=== PATIENT | male | born 1965 | race Asian ===

== ENCOUNTER 2017-11-04 17:47 | Inpatient (IN) | payer MEDICAID, OTHER ==
[~2017-11-04] VITALS: Ht 160 cm; Wt 70.2 kg
[2017-11-04] MEDS ORDERED: MAALOX/HYOSCYAMINE/LIDOCAINE 45 ML BTL ONE (18:30)
[2017-11-04] MEDS ORDERED: MAALOX/HYOSCYAMINE/LIDOCAINE 45 ML BTL PO ONE (18:30)
[2017-11-04] MEDS ORDERED: SODIUM CHLORIDE FLUSH 10ML SYR IVF ONE ×2 (18:30→20:00)
[2017-11-04] MEDS ORDERED: ONDANSETRON ODT 4 MG ONE (18:30)
[2017-11-04] MEDS ORDERED: ONDANSETRON ODT 4 MG PO ONE (18:30)
[2017-11-04] MEDS ORDERED: SODIUM CHLORIDE 0.9% 1,000ML IVBOLUS ONE ×3 (18:30→21:00)
[2017-11-04 19:04] LABS: ALBUMIN 5.2 g/dL (3.4-5.0); ANION GAP 11 mmol/L (5-15); CALCIUM 9.2 mg/dL (8.5-10.1); CHLORIDE 101 mmol/L (98-107)
[2017-11-04 19:06] LABS: MEAN CORPUSCULAR HEMOGLOBIN 29.1 pg (27.5-34.5); MEAN CORPUSCULAR HGB CONC 32.8 g/dL (33.2-36.2); MEAN CORPUSCULAR VOLUME 88.6 fL (81-97); PLATELET COUNT 255 x10^3/uL (130-400); RED BLOOD COUNT 6.75 x10^6/uL (4.38-5.82); RED CELL DISTRIBUTION WIDTH 13.9 % (9.4-14.8)
[2017-11-04 19:07] LABS: ALANINE AMINOTRANSFERASE 51 U/L (12-78); ALKALINE PHOSPHATASE 129 U/L (45-117); BILIRUBIN,TOTAL 0.9 mg/dL (0.2-1.0); CREATININE 2.14 mg/dL (0.7-1.3); TOTAL PROTEIN 10.5 g/dL (6.4-8.2)
[2017-11-04 19:11] LABS: MD YES
[2017-11-04 19:17] LABS: BANDS%(MANUAL) 25 % (0-7); EOS#(MANUAL) 0.62 x10^3/uL (0.0-0.4); EOS% (MANUAL) 3 % (1-7); LYMPH#(MANUAL) 1.87 x10^3/uL (1-3.4); LYMPHS% (MANUAL) 9 % (22-44); METAMYELOCYTES# (MANUAL) 0.83 x10^3/uL (0-0); METAMYELOCYTES% (MANUAL) 4 % (0-1); MONOS#(MANUAL) 1.66 x10^3/uL (0.3-2.7); MONOS% (MANUAL) 8 % (2-9); SEG#(MANUAL) 10.61 x10^3/uL (1.8-6.8); SEGS% (MANUAL) 51 % (42-75)
[2017-11-04 19:21] LABS: <PLATELET ESTIMATE> ADEQUATE; <RBC MORPHOLOGY> NORMAL; GIANT PLATELETS 1+; LARGE PLATELETS 1+
[2017-11-04] MEDS ORDERED: CIPROFLOXACIN/PMX 400MG/200ML 200 ML IV ONE (21:00)
[2017-11-04 21:42] LABS: MICROSCOPIC INDICATED
[2017-11-04] MEDS ORDERED: CIPROFLOXACIN/PMX 400MG/200ML 200 ML ONE (21:42)
[2017-11-04 21:53] LABS: CULTURE INDICATED? YES
[2017-11-04] MEDS ORDERED: HEPARIN 5,000 UNITS/ML, 1ML SQ SCH (22:30)
[2017-11-04] MEDS ORDERED: BISACODYL 10 MG SUPP PR PRN (22:30)
[2017-11-04] MEDS ORDERED: morphine SULFATE 10 MG/ML, 1ML IVPush PRN (22:30)
[2017-11-04] MEDS ORDERED: POLYETHYLENE GLYCOL 17 GM PACKET PO PRN (22:30)
[2017-11-04] MEDS ORDERED: ACETAMINOPHEN 325 MG TABLET PO PRN (22:30)
[2017-11-04] MEDS ORDERED: OXYcodone IR 5MG TABLET PO PRN (22:30)
[2017-11-04] MEDS ORDERED: PROMETHAZINE 25 MG/ML, 1ML IM PRN (22:30)
[2017-11-04] MEDS ORDERED: ONDANSETRON 2MG/ML, 2ML IVPush PRN (22:30)
[2017-11-04] MEDS ORDERED: DOCUSATE 100 MG CAPSULE PO PRN (22:30)
[2017-11-04] MEDS ORDERED: hydrALAzine 20 MG/ML, 1ML IVPush PRN (22:30)
[2017-11-04 23:28] LABS: FREE T4 (FREE THYROXINE) 1.02 ng/dL (0.76-1.46); THYROID STIMULATING HORMONE 1.27 mIU/L (0.358-3.740)
[2017-11-04] MEDS: SODIUM CHLORIDE 0.9% 1,000 ML IV SCH (23:39)
[2017-11-05] VITALS (12 sets, daily range): BP systolic 88–114; BP diastolic 42–57
[2017-11-05] MEDS: CEFTRIAXONE PMX 2GM/50ML 50 ML IV SCH ×2 (00:09→22:12)
[2017-11-05 00:34] LABS: HEMOGLOBIN A1C 6.2 % (4.2-6.3)
[2017-11-05 05:39] LABS: BASOPHILS # (AUTO) 0.04 x10^3/uL (0-0.1); BASOPHILS % (AUTO) 0 % (0-1); EOSINOPHILS # (AUTO) 0.27 x10^3/uL (0-0.4); EOSINOPHILS % (AUTO) 2 % (1-7); LYMPHOCYTES # (AUTO) 1.32 x10^3/uL (1-3.4); LYMPHOCYTES % (AUTO) 9 % (22-44); MD NO; MEAN CORPUSCULAR HEMOGLOBIN 29.4 pg (27.5-34.5); MEAN CORPUSCULAR HGB CONC 33.7 g/dL (33.2-36.2); MEAN CORPUSCULAR VOLUME 87.1 fL (81-97); MEAN PLATELET VOLUME 9.5 fL (7.4-10.4); MONOCYTES # (AUTO) 1.42 x10^3/uL (0.2-0.8); MONOCYTES % (AUTO) 10 % (2-9); NEUTROPHILS # (AUTO) 11.38 x10^3/uL (1.8-6.8); NEUTROPHILS % (AUTO) 79 % (42-75); PLATELET COUNT 209 x10^3/uL (130-400); RED BLOOD COUNT 4.68 x10^6/uL (4.38-5.82); RED CELL DISTRIBUTION WIDTH 13.9 % (9.4-14.8)
[2017-11-05 05:42] LABS: CHLORIDE 110 mmol/L (98-107)
[2017-11-05 05:51] LABS: ALANINE AMINOTRANSFERASE 27 U/L (12-78); ALBUMIN 2.9 g/dL (3.4-5.0); ALKALINE PHOSPHATASE 67 U/L (45-117); ANION GAP 10 mmol/L (5-15); BILIRUBIN,TOTAL 0.5 mg/dL (0.2-1.0); CALCIUM 7.2 mg/dL (8.5-10.1); CHOL/HDL RATIO 4.3; CHOLESTEROL, TOTAL 115 mg/dL (140-239); CREATININE 1.65 mg/dL (0.7-1.3); HDL CHOL % 23 % (26-37); HDL CHOLESTEROL (DIRECT) 27 mg/dL (40-60); LDL CHOLESTEROL,CALCULATED 46 mg/dL (54-169); LDL/HDL RATIO 1.7 (0.5-3.0); TOTAL PROTEIN 6.1 g/dL (6.4-8.2); TRIGLYCERIDES 211 mg/dL (50-200); VLDL CHOLESTEROL 42 mg/dL (0-25)
[2017-11-05] MEDS: SODIUM CHLORIDE 0.9% 1,000 ML IV SCH (06:19)
[2017-11-05 09:38] LABS: CLOSTRIDIUM DIFFICILE ANTIGEN NEGATIVE; CLOSTRIDIUM DIFFICILE TOXIN NEGATIVE (Negative)
[2017-11-05] MEDS: LACTATED RINGERS 1,000 ML IV SCH ×3 (10:05→23:44)
[2017-11-05 10:29] LABS: STOOL FOR LEUKOCYTES NONE SEEN (NEGATIVE)
[2017-11-05 10:32] LABS: OCCULT BLOOD NEGATIVE (NEGATIVE)
[2017-11-06 01:03] VITALS: BP 104/57
[2017-11-06] MEDS: LACTATED RINGERS 1,000 ML IV SCH ×2 (05:38→11:57)
[2017-11-06 06:07] LABS: BASOPHILS # (AUTO) 0.03 x10^3/uL (0-0.1); BASOPHILS % (AUTO) 0 % (0-1); EOSINOPHILS # (AUTO) 0.54 x10^3/uL (0-0.4); EOSINOPHILS % (AUTO) 5 % (1-7); LYMPHOCYTES # (AUTO) 1.92 x10^3/uL (1-3.4); LYMPHOCYTES % (AUTO) 19 % (22-44); MD NO; MEAN CORPUSCULAR HEMOGLOBIN 29.7 pg (27.5-34.5); MEAN CORPUSCULAR VOLUME 87.3 fL (81-97); MEAN PLATELET VOLUME 9.8 fL (7.4-10.4); MONOCYTES # (AUTO) 0.93 x10^3/uL (0.2-0.8); MONOCYTES % (AUTO) 9 % (2-9); NEUTROPHILS # (AUTO) 6.96 x10^3/uL (1.8-6.8); NEUTROPHILS % (AUTO) 67 % (42-75); PLATELET COUNT 206 x10^3/uL (130-400); RED BLOOD COUNT 4.44 x10^6/uL (4.38-5.82); RED CELL DISTRIBUTION WIDTH 14.1 % (9.4-14.8)
[2017-11-06 06:13] LABS: CHLORIDE 109 mmol/L (98-107)
[2017-11-06 06:23] LABS: ANION GAP 9 mmol/L (5-15); CALCIUM 8.2 mg/dL (8.5-10.1); CREATININE 1.08 mg/dL (0.7-1.3)
[2017-11-06 07:02] VITALS: BP 129/75
[2017-11-06 13:23] VITALS: BP 124/70
[2017-11-06] MEDS ORDERED: OMEG1CAP6 PO (16:13)
== END 2017-11-06 16:55 | disposition home or self-care (01) | DRG 871 ==
LOC: ED 20:58 → EDIP 22:02 → 4NOR 23:04 → DCLOUNGE 11-06 16:39
PROVIDERS: ADMIT Internal Medicine; ATTEND Internal Medicine
DX: A41.9 Sepsis, unspecified organism (principal); N17.0 Acute kidney failure with tubular necrosis; E44.1 Mild protein-calorie malnutrition; E87.1 Hypo-osmolality and hyponatremia; R65.20 Severe sepsis without septic shock; D64.9 Anemia, unspecified; E78.1 Pure hyperglyceridemia; E86.0 Dehydration; N28.1 Cyst of kidney, acquired; A08.4 Viral intestinal infection, unspecified; Z68.27 Body mass index [BMI] 27.0-27.9, adult
CPT/HCPCS: 36415; 74176; 76770; 80048; 80053; 80061; 81001; 82272; 83036; 83605; 83690; 83735; 84439; 84443; 85025; 87040; 87046; 87086; 87324; 87427; 89055; 96361; 96365; J0696; J0744; Q0162; J7030; J7120

== ENCOUNTER 2020-09-10 08:25 | Emergency (ER) | payer SELFPAY ==
[~2020-09-10] VITALS: Ht 157.5 cm; Wt 67.0 kg
[~2020-09-10 08:25] MED LIST: OMEG1CAP6 PO
[2020-09-10] MEDS ORDERED: ONDANSETRON 2MG/ML, 2ML ONE (08:50)
[2020-09-10] MEDS ORDERED: HYDROmorphone 1 MG/ML, 1ML INJ ONE ×2 (08:50→09:33)
[2020-09-10] MEDS ORDERED: SODIUM CHLORIDE FLUSH 10ML SYR IVF ONE (09:00)
[2020-09-10] MEDS ORDERED: ONDANSETRON 2MG/ML, 2ML IVPush ONE (09:00)
[2020-09-10] MEDS ORDERED: HYDROmorphone 1 MG/ML, 1ML INJ IV ONE ×2 (09:00→09:30)
--- NOTE | 2020-09-10 09:01 | NUR ---
PER PATIENT "I WAKE UP WITH BAD TOO MUCH PAIN IN MY LEFT BACK" DENIES INJURY TO AREA, DENEIS URINARY SYMPTOMS, PT STATES PAIN X1HR DR. RAMIRES TO BEDSIDE FOR EVALUATION. PT STATES 10/10 PAIN. PT ATTACHED TO MONITORS. VSS. PT OBSERVED TO BE IN DISTRESS FROM PAIN.
--- NOTE | 2020-09-10 09:02 | NUR ---
PT TO CT
--- NOTE | 2020-09-10 09:25 | NUR ---
TASK RN: URINE COLLECTED AND SENT TO LAB. PT REQUESTING PAIN MEDS. WILL NOTIFY ERP. PT RESTING ON [employer] W/ CALL LIGHT IN REACH AND SIDE RAILS UPX2. RESP EVEN AND UNLABORED, IVONE.
[2020-09-10 09:30] LABS: MICROSCOPIC AUTO
[2020-09-10 09:37] VITALS: BP 148/79
--- NOTE | 2020-09-10 09:37 | NUR ---
pt medicated per emar for 01/02 pain. vss
--- NOTE | 2020-09-10 09:53 | NUR ---
DR. RAMIRES TO BEDSIDE TO DISCUSS RESULTS. NADN. DESAI.
--- NOTE | 2020-09-10 10:19 | NUR ---
Patientr given discharge instructions and they have confirmed that they understand the instructions. Patient ambulatory with steady gait. This RN witnessed pt call for safe ride home.
== END 2020-09-10 10:20 | disposition home or self-care (01) ==
LOC: ED 08:51
DX: N23 Unspecified renal colic (principal); R31.9 Hematuria, unspecified; N28.1 Cyst of kidney, acquired
CPT/HCPCS: 74176; 81001; 96374; 96375; 96376; 99284; J1170; J2405